=== PATIENT | female | born 1950 | race Caucasian/White ===

== ENCOUNTER → 2017-02-13 | Outpatient (CLI) | payer MEDICARE ==
[~2017-02-13] MED LIST: ASPI81TA45 PO; BUPR100T PO; GABA300C3 PO; GLUC10TA3 PO; LEVA500T PO; LEXA20TA PO; METH10TA PO; NOVOLOGP2 SQ; VITA200017 PO
== END ==
LOC: CLAB 11:40
PROVIDERS: ATTEND Specialist
DX: B18.2 Chronic viral hepatitis C (principal); E11.8 Type 2 diabetes mellitus with unspecified complications; I10 Essential (primary) hypertension; R10.11 Right upper quadrant pain; R94.5 Abnormal results of liver function studies; R79.89 Other specified abnormal findings of blood chemistry; Z79.899 Other long term (current) drug therapy
CPT/HCPCS: 36415; 82140